=== PATIENT | female | born 1985 | race Caucasian/White ===

== ENCOUNTER 2021-11-19 16:15 | Emergency (ER) | payer OTHER ==
[~2021-11-19] VITALS: Ht 154.9 cm; Wt 77.0 kg
[~2021-11-19 16:15] MED LIST: NO HOME MEDS
[2021-11-19 16:38] VITALS: BP 131/87
[2021-11-19] MEDS ORDERED: acetaminophen 325mg tablet PO STA (17:06)
[2021-11-19] MEDS ORDERED: normal saline 1000ML IV soln IV ONE (17:10)
[2021-11-19 17:29] LABS: BASOPHILS % (AUTO) 0.3 % (0-1); EOSINOPHILS # (AUTO) 0.1 X10'3 (0-0.9); EOSINOPHILS % (AUTO) 1.8 % (0-6); HEMOGLOBIN 14.4 g/dl (12.0-16.0); LYMPHOCYTES # (AUTO) 0.3 X10'3 (1.1-4.8); LYMPHOCYTES % (AUTO) 3.3 % (21-51); MEAN CORPUSCULAR HEMOGLOBIN 30.6 PG (27.0-31.0); MEAN CORPUSCULAR HGB CONC 32.7 g/dL (33.0-36.5); MEAN CORPUSCULAR VOLUME 93.6 FL (78-98); MEAN PLATELET VOLUME 8.3 FL (7.4-10.4); MONOCYTES # (AUTO) 0.6 X10'3 (0-0.9); MONOCYTES % (AUTO) 7.4 % (2-12); NEUTROPHILS # (AUTO) 7.1 X10'3 (1.8-7.7); NEUTROPHILS % (AUTO) 87.2 % (42-75); PLATELET COUNT 263 X10'3 (140-440); RED CELL DISTRIBUTION WIDTH 13.7 % (11.5-14.5); WHITE BLOOD COUNT 8.2 X10'3 (4.5-11.0)
[2021-11-19 17:37] LABS: CLARITY,URINE SLIGHTLY CLOUDY (Clear); COLOR,URINE YELLOW (Yellow); GLUCOSE, URINE NEGATIVE (Neg); KETONES,URINE NEGATIVE (Neg); LEUKOCYTE ESTERASE ,URINE NEGATIVE (Neg); NITRITES, URINE NEGATIVE (Neg); OCCULT BLOOD,URINE LARGE (Neg); PROTEIN,URINE NEGATIVE (Neg); UROBILINOGEN,URINE 0.2 E.U/dL (0.2-1.0)
[2021-11-19 17:42] LABS: ALANINE AMINOTRANSFERASE 28 U/L (12-78); ALBUMIN 3.8 G/DL (3.4-5.0); ALBUMIN/GLOBULIN RATIO 0.9 (1.1-1.5); ALKALINE PHOSPHATASE 114 IU/L (46-116); ANION GAP 9 (8-16); ASPARTATE AMINO TRANSFERASE 19 U/L (10-37); BILIRUBIN,TOTAL 0.2 MG/DL (0.1-1.0); BLOOD UREA NITROGEN 9 MG/DL (7-18); BUN/CREATININE RATIO 10.5 (6.6-38.0); C-REACTIVE PROTEIN 0.66 MG/DL (0.0-0.5); CALCIUM 9.1 MG/DL (8.5-10.1); CHLORIDE 102 MMOL/L (99-107); CREATININE 0.86 MG/DL (0.40-0.90); GLUCOSE 109 MG/DL (70-104); POTASSIUM 3.8 MMOL/L (3.5-5.1); SODIUM 136 MMOL/L (135-145); TOTAL CARBON DIOXIDE 25.3 MMOL/L (24-32); eGFR 74 ML/MIN
[2021-11-19 17:50] LABS: URINE AMPHETAMINE SCREEN POSITIVE (Neg); URINE BARBITUATE SCREEN NEGATIVE (Neg); URINE BENZODIAZEPINES SCREEN NEGATIVE (Neg); URINE CANNABINOID SCREEN NEGATIVE (Neg); URINE COCAINE SCREEN NEGATIVE (Neg); URINE METHADONE SCREEN NEGATIVE (Neg); URINE OPIATE SCREEN NEGATIVE (Neg); URINE PHENCYCLIDINE SCREEN NEGATIVE (Neg)
[2021-11-19 18:15] LABS: UA COLLECTION TYPE CLN CATCH MIDSTREAM
[2021-11-19 18:16] LABS: BACTERIA,URINE 1+ /HPF (Neg); MUCUS STRANDS MANY /LPF (Neg); SQUAMOUS EPITHELIAL CELL,UR MANY /LPF (FEW); WBC,URINE 0-4 /HPF (0-4)
[2021-11-19] MEDS ORDERED: ACET-1025 PO (18:46)
== END 2021-11-19 19:21 | disposition home or self-care (01) ==
LOC: ER 16:16
DX: U07.1 COVID-19 (principal); R51.9 Headache, unspecified; R50.9 Fever, unspecified; M54.40 Lumbago with sciatica, unspecified side; R42 Dizziness and giddiness; F15.90 Other stimulant use, unspecified, uncomplicated; Z98.51 Tubal ligation status; Z72.89 Other problems related to lifestyle; Z79.899 Other long term (current) drug therapy
CPT/HCPCS: 36415; 71045; 80053; 80305; 81001; 83605; 84145; 85025; 85651; 86140; 87040; 87635; 93005; 99285; C9803; J7030; 99284

== ENCOUNTER 2022-02-06 23:51 | Emergency (ER) | payer MEDICAID ==
[~2022-02-06] VITALS: Ht 154.9 cm; Wt 77.3 kg
[2022-02-07] MEDS ORDERED: proparacaine 0.5% ophthalmic drops 15ml EACHEYE ONE (01:40)
[2022-02-07] MEDS ORDERED: ibuprofen tablet 400 MG TABLET PO ONE (01:45)
[2022-02-07] MEDS ORDERED: acetaminophen 325mg tablet PO ONE (01:45)
[2022-02-07] MEDS ORDERED: erythromycin ophthalmic ointment 1gm tube LEFTEYE ONE (02:20)
[2022-02-07] MEDS ORDERED: ERYT1OIN6 EACHEYE (02:32)
[2022-02-07 03:16] VITALS: BP 130/78
== END 2022-02-07 03:20 | disposition home or self-care (01) ==
LOC: ER 23:52
DX: S05.02XA Injury of conjunctiva and corneal abrasion without foreign body, left eye, initial encounter (principal); F15.10 Other stimulant abuse, uncomplicated; Z79.899 Other long term (current) drug therapy; X58.XXXA Exposure to other specified factors, initial encounter; Y93.89 Activity, other specified; Y92.89 Other specified places as the place of occurrence of the external cause; Y99.8 Other external cause status
CPT/HCPCS: 99284

== ENCOUNTER 2023-02-15 10:27 | Emergency (ER) | payer MEDICAID ==
[~2023-02-15] VITALS: Ht 154.9 cm; Wt 65.0 kg
[2023-02-15 10:45] VITALS: BP 127/96
--- NOTE | 2023-02-15 11:01 | NUR ---
Pt in [facility]. PT C/O DIFFICULTY SWALLOWING. PAIN WHEN SWALLOWING. Pt educated to POC. Pt in agreement. Pending providers eval and treatment.
== END 2023-02-15 12:22 | disposition left against medical advice (07) ==
LOC: ER 10:28
DX: K92.0 Hematemesis (principal); Z53.21 Procedure and treatment not carried out due to patient leaving prior to being seen by health care provider
CPT/HCPCS: 99281

== ENCOUNTER 2024-10-08 15:35 | Emergency (ER) | payer MEDICAID ==
[~2024-10-08] VITALS: Ht 154.9 cm; Wt 57.7 kg
[2024-10-08 15:37] VITALS: TEMP 97.2
[2024-10-08 16:16] LABS: BASOPHILS # (AUTO) 0.1 X10'3 (0-0.2); BASOPHILS % (AUTO) 0.4 % (0-1); EOSINOPHILS # (AUTO) 0.2 X10'3 (0-0.9); EOSINOPHILS % (AUTO) 1.6 % (0-6); HEMATOCRIT 43.6 % (35.0-45.0); LYMPHOCYTES # (AUTO) 2.3 X10'3 (1.1-4.8); LYMPHOCYTES % (AUTO) 18.5 % (21-51); MEAN CORPUSCULAR HGB CONC 34.3 g/dL (33.0-36.5); MEAN CORPUSCULAR VOLUME 93.1 FL (78-98); MEAN PLATELET VOLUME 7.4 FL (7.4-10.4); MONOCYTES # (AUTO) 1.9 X10'3 (0-0.9); MONOCYTES % (AUTO) 15.9 % (2-12); NEUTROPHILS # (AUTO) 7.8 X10'3 (1.8-7.7); NEUTROPHILS % (AUTO) 63.6 % (42-75); PLATELET COUNT 370 X10'3 (140-440); RED BLOOD COUNT 4.68 X10'6 (4.20-5.60); RED CELL DISTRIBUTION WIDTH 14.4 % (11.5-14.5); WHITE BLOOD COUNT 12.2 X10'3 (4.5-11.0)
[2024-10-08 16:28] LABS: ALBUMIN 3.6 G/DL (3.4-5.0); ANION GAP 11 (8-16); BLOOD UREA NITROGEN 12 MG/DL (7-18); BUN/CREATININE RATIO 13.3 (10.0-20.0); CALCIUM 9.3 MG/DL (8.5-10.1); CHLORIDE 102 MMOL/L (99-107); GLUCOSE 68 MG/DL (70-104); LIPASE 54 U/L (16-77); SODIUM 141 MMOL/L (135-145); TOTAL CARBON DIOXIDE 27.8 MMOL/L (24-32); eCRCL 63 ML/MIN; eGFR 69 ML/MIN
[2024-10-08 19:53] VITALS: BP 120/85; PULSE 114; RESP 18; O2SAT 97
== END 2024-10-08 20:14 | disposition home or self-care (01) ==
LOC: ER 15:36
DX: K62.3 Rectal prolapse (principal); F15.10 Other stimulant abuse, uncomplicated; R45.1 Restlessness and agitation; F17.210 Nicotine dependence, cigarettes, uncomplicated; Z98.51 Tubal ligation status; Z72.89 Other problems related to lifestyle
CPT/HCPCS: 36415; 80048; 83690; 84145; 85025; 99283

== ENCOUNTER 2025-06-07 13:05 | Emergency (ER) | payer MEDICAID ==
[~2025-06-07] VITALS: Ht 154.9 cm; Wt 57.0 kg
[2025-06-07 13:17] VITALS: BP 144/98; PULSE 110; RESP 16; O2SAT 99
--- NOTE | 2025-06-07 14:04 | Physician Documentation ---
History of Present Illness ~ Chief Complaint: Medical Clearance Stated Complaint: MEDICAL CLEARANCE Time Seen by MD: 13:41 Primary Medical Doctor: Sussy [place] [facility] This is a 39-year-old female with a history of fentanyl abuse who presents requesting medical clearance to enter a rehab facility, patient reports last fentanyl use was two days prior, patient reports that she is seen at [facility] for methadone treatment for addiction and it is now on daily methadone. Patient reports she feels otherwise well reports no other acute symptoms or concerns. Medication Reconciliation Allergies: Coded Allergies: No Known Drug Allergies (Verified Allergy, Unknown, 06/07/25) Miscellaneous Medications Home Med List (No Home Medications), (Reported) Past Medical History Past Medical History: *GI/HEPATOBILIARY* Past Surgical History: tubal ligation Alcohol Use: Occasionally Drug Use: methamphetamine Lives with: Family Lives In: Home Review of Systems ROS As stated above in the HPI, otherwise all systems are reviewed and negative. Physical Exam Vital Signs: Temperature: 98.4, Source: Temporal, Heart Rate: 110, Respiratory Rate: 16, BP: 144/98, Pulse Oximetry: 99, Weight: 57.000 Oxygen Flow Rate: 0 Physical Exam VITALS: Reviewed and as above. GENERAL: Alert, nontoxic appearing, no apparent distress. HEENT: PERRLA, EOMI, no facial swelling RESPIRATORY: No increased work of breathing, no respiratory distress, speaking in full clear sentences CV: Regular rate and rhythm no murmur BACK: No central spinal tenderness, no CVA tenderness GI: Soft, nontender, no rebound, no guarding, bowel sounds present NEURO: GCS 15 oriented x4 Progress Results/Orders Results/Orders Vital Signs 06/07/25 06/07/25 13:17 14:09 Temp 98.4 98.4 Pulse 110 Resp 16 B/P (MAP) 144/98 Pulse Ox 99 O2 Flow Rate 0 Medical Decision Making Findings This 39-year-old female presented requesting medical clearance to enter rehab program, it is reassuring patient is seen at its methadone clinic and receives daily methadone therapy for medication assisted treatment for addiction therefore low concern for opioid withdrawal symptoms, additionally reassuring patient reports no alcohol abuse making risk for alcohol withdrawal low. Patient reported feeling otherwise well and physical exam was benign therefore patient is cleared for entry to her rehab program. Follow up instructions and return to care precautions discussed with the patient who verbalized understanding. Differential Dx:Considerations: Include: Intoxication-Alcohol, Intoxication- Other drug, Personality disorder, Substance abuse disorder, Alcohol withdrawl syndrom Departure Time of Disposition: 14:03 Disposition: 01 HOME / SELF CARE / HOMELESS Impression: Primary Impression: General medical exam Condition: Improved Discharge Instructions: Medical Screening Exam Additional Instructions: You are medically cleared to enter your rehabilitation program. Please follow up with your primary care provider in the next few days. Follow up as scheduled with your methadone program. Please return to the emergency department for any new or worsening concerning symptoms. Referrals: NO PRIMARY CARE PROVIDER (PCP) Education Educated: Patient Educated regarding: diagnosis, treatment, prognosis, need for follow up Signature Scribe Signature: No scribe Attestation: The note accurately reflects work and decisions made by me.MALLIKA Thomas 06/07/25 21:05 ROSE PAYTON Jun 07, 2025 14:04
[2025-06-07 14:09] VITALS: TEMP 98.4
== END 2025-06-07 14:11 | disposition home or self-care (01) ==
LOC: ER 13:06
DX: Z00.00 Encounter for general adult medical examination without abnormal findings (principal); F15.90 Other stimulant use, unspecified, uncomplicated; Z98.51 Tubal ligation status; Z72.89 Other problems related to lifestyle
CPT/HCPCS: 99282

== ENCOUNTER 2025-09-26 13:37 | Emergency (ER) | payer MEDICAID ==
[~2025-09-26] VITALS: Ht 156.2 cm; Wt 58.2 kg
[2025-09-26 13:43] VITALS: BP 125/88; TEMP 98.9
--- NOTE | 2025-09-26 13:55 | Physician Documentation ---
History of Present Illness ~ Chief Complaint: Medical Clearance Stated Complaint: MED CLEARANCE Time Seen by MD: 13:55 Primary Medical Doctor: ROSAS WALLACE HPI 40 year-old female with a history of methamphetamine and fentanyl presents to the ED requesting medical clearance. She says she walked a long distance to get to the ED which is what it explains her elevated heart rate. Patient appears anxious and has rapid speech. Denies using methamphetamine today Day of Onset: Sep 26, 2025 Tetanus within 5 years?: No Medication Reconciliation Allergies: Coded Allergies: No Known Drug Allergies (Verified Allergy, Unknown, 06/07/25) Miscellaneous Medications Home Med List (No Home Medications), (Reported) Past Medical History Past Medical History: *GI/HEPATOBILIARY* Past Surgical History: tubal ligation Alcohol Use: Occasionally Drug Use: methamphetamine Lives with: Family Lives In: Home Review of Systems All Other Systems at this time: Reviewed and Negative ROS As stated above in the HPI, otherwise all systems are reviewed and negative. Physical Exam Vital Signs: Temperature: 98.9, Source: Oral, Heart Rate: 136, Respiratory Rate: 18, BP: 125/88, Pulse Oximetry: 100, Weight: 58.180 Physical Exam General: Alert, no apparent distress. Respiratory: Lungs clear, no respiratory distress. Cardiovascular: tachycardic Gastrointestinal: Soft, nontender, nondistended. Bowels sounds present. Extremities: Normal range of motion, no deformity. Neurologic: Oriented x4. Psychiatric: Pressured speech Skin: Normal color, warm and dry. No edema, no ecchymosis. Progress Results/Orders Results/Orders Vital Signs 09/26/25 09/26/25 13:43 13:57 Temp 98.9 Pulse 136 143 Resp 18 20 B/P (MAP) 125/88 Pulse Ox 100 97 Medical Decision Making Additional information obtaine: old records Findings This patient meets all the clinical criteria for current methamphetamine use with pressured speech, tachycardia and restlessness. I can not medically clear her until she is not under the influence of methamphetamine I explained this to the patient she will have to return then Differential Dx:Considerations: Include: Intoxication-Alcohol, Intoxication- Other drug, Personality disorder, Substance abuse disorder, Acute delirium, Closed head injury, Cervical spine injury, Skull fracture, Fracture(s), Abrasion, Contusion, Foreign body, Hematoma, Laceration, Alcohol withdrawl syndrom, Encephalopathy, Hepatitis, Medically stable, Other Departure Disposition: HOME / SELF CARE / HOMELESS Impression: Primary Impression: Methamphetamine abuse Discharge Instructions: Medical Screening Exam Referrals: NO PRIMARY CARE PROVIDER (PCP) Signature Scribe Signature: g Attestation: Scribed for Dallas Powers Integration Software Engineer by Dallas Davidson NP . 09/26/25 18:17 DALLAS POWERS NP Sep 26, 2025 13:55
[2025-09-26 13:57] VITALS: PULSE 143; RESP 20; O2SAT 97
== END 2025-09-26 13:59 | disposition home or self-care (01) ==
LOC: ER 13:37
DX: F15.10 Other stimulant abuse, uncomplicated (principal); Z98.51 Tubal ligation status; Z72.89 Other problems related to lifestyle
CPT/HCPCS: 99282

== ENCOUNTER 2025-10-09 11:37 | Outpatient (CLI) | payer MEDICAID ==
--- NOTE | 2025-10-09 12:07 | ELECTROCARDIOGRAPH REPORT ---
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 ENRIQUE Robertson Measurements Intervals [place] Rate: 72 P: 72 [place]: 139 QRS: 74 QRSD: 97 T: 75 QT: 432 QTc: 473 Interpretive Statements Sinus rhythm Electronically Signed On 10-09-2025 17:16:[address] ENRIQUE Robertson Please click the below link to view image of tracing.
== END 2025-10-09 23:59 | disposition home or self-care (01) ==
LOC: RAD 11:37
PROVIDERS: ATTEND Physician Assistant
DX: I49.8 Other specified cardiac arrhythmias (principal); F11.20 Opioid dependence, uncomplicated
CPT/HCPCS: 93005